=== PATIENT | male | born 1980 | race Caucasian/White ===

== ENCOUNTER 2017-12-17 17:07 | Emergency (ER) | payer OTHER ==
[~2017-12-17] VITALS: Ht 180.3 cm; Wt 86.2 kg
[~2017-12-17 17:07] MED LIST: CLONAZEPAM 1 MG1 M1; DEPAKOTE ER250 MG; IBUPROFEN 200200 M1 PO; ONDANSETRON HCL4 M2 PO; PERCOCET 5-3251 EACH PO; PROZAC 20 MG20 M1; TRAMADOL 50 MG50 MG PO; ULTRAM 50MG TAB50 MG PO
[2017-12-17] MEDS ORDERED: NORCO 5-325 TA1 EACH PO (18:01)
== END 2017-12-17 18:49 | disposition home or self-care (01) ==
LOC: ER 17:07
DX: S05.8X2A Other injuries of left eye and orbit, initial encounter (principal); Z86.73 Personal history of transient ischemic attack (TIA), and cerebral infarction without residual deficits; Z88.0 Allergy status to penicillin; W22.8XXA Striking against or struck by other objects, initial encounter; Y93.89 Activity, other specified; Y92.89 Other specified places as the place of occurrence of the external cause; Y99.0 Civilian activity done for income or pay